=== PATIENT | female | born 1945 | race African-American/Black ===

== ENCOUNTER 2019-09-16 13:35 | Emergency (ER) | payer MEDICARE, MEDICAID ==
[2019-09-16 14:43] LABS: INTERNATIONAL RATION (INR) 1.01; PROTHROMBIN TIME 13.3 SEC (11.4-15.4)
[2019-09-16 14:44] LABS: ABSOLUTE LYMPHOCYTES (AUTO) 1.1 10^3/uL (0.5-4.7); ABSOLUTE MONOCYTES (AUTO) 0.4 10^3/uL (0.1-1.4); ABSOLUTE NEUT (AUTO) 7.7 10^3/uL (1.7-8.2); BASOPHILS % (AUTO) 0.4 % (0-2); EOSINOPHILS % (AUTO) 0.3 % (0-6); HEMATOCRIT 37.8 % (36.0-47.0); HEMOGLOBIN 12.2 g/dL (12.0-15.5); LYMPHOCYTES % (AUTO) 11.5 % (13-45); MEAN CORPUSCULAR HEMOGLOBIN 31.2 pg (27.0-33.4); MEAN CORPUSCULAR HGB CONC 32.4 g/dL (32.0-36.0); MEAN CORPUSCULAR VOLUME 96 fl (80-97); MONOCYTES % (AUTO) 4.5 % (3-13); PLATELET COUNT 239 10^3/uL (150-450); RED BLOOD COUNT 3.92 10^6/uL (3.72-5.28); RED CELL DISTRIBUTION WIDTH 19.6 % (11.5-14.0); SEGMENTED NEUTROPHILS % (AUTO) 83.3 % (42-78); TOTAL CELLS COUNTED % (AUTO) 100 %; WHITE BLOOD COUNT 9.2 10^3/uL (4.0-10.5)
[2019-09-16 14:51] LABS: VENOUS BLOOD BASE EXCESS -0.7 mmol/L; VENOUS BLOOD HCO3 25.2 mmol/L (20-32); VENOUS BLOOD PCO2 47.1 mmHg (35-63); VENOUS BLOOD PH 7.35 (7.30-7.42)
--- NOTE | 2019-09-16 14:55 | RADIOLOGY REPORT (SQ) ---
EXAM DESCRIPTION: CT HEAD WITHOUT COMPLETED DATE/TIME: 09/16/2019 2:42 pm REASON FOR STUDY: Altered mental status COMPARISON: None. TECHNIQUE: Axial images acquired through the brain without intravenous contrast. Images reviewed wi th bone, brain and subdural windows. Additional sagittal and coronal reconstructions were generated. Images stored on PACS. All CT scanners at this facility use dose modulation, iterative reconstruction, and/or weight based d osing when appropriate to reduce radiation dose to as low as reasonably achievable (ALARA). [facility]: Dose Right [facility]: CareDose [facility]: Dose Right [facility]: Teradose 4D [facility]: NCTech RADIATION DOSE: CT Rad equipment meets quality standard of care and radiation dose reduction techniq ues were employed. CTDIvol: 24.8 - 53.2 mGy. DLP: 1570 mGy-cm. mGy. LIMITATIONS: None. FINDINGS: VENTRICLES: Prominent. CEREBRUM: No masses. No hemorrhage. No midline shift. Areas of low density in the white matter mos t likely due to chronic micro-vascular ischemic change. No evidence for acute infarction. CEREBELLUM: No masses. No hemorrhage. No alteration of density. No evidence for acute infarction. EXTRAAXIAL SPACES: Mild age-related involutional change. No fluid collections. No masses. ORBITS AND GLOBE: No intra- or extraconal masses. Normal contour of globe without masses. CALVARIUM: No fracture. PARANASAL SINUSES: No fluid or mucosal thickening. SOFT TISSUES: No mass or hematoma. OTHER: There is expansion of the sella turcica with generally low-attenuation. IMPRESSION: 1. MILD CHRONIC CHANGES OF ATROPHY AND MICROVASCULAR ISCHEMIA. NO ACUTE PROCESS. 2. EXPANSION OF THE SELLA TURCICA WITH GENERALLY LOW-ATTENUATION. PROBABLY DUE TO AN INCIDENTAL EMPT Y SELLA. FOLLOW-UP OUTPATIENT MRI OF THE BRAIN WITH ATTENTION TO THE PITUITARY MAY BE CONSIDERED FOR MORE COMPLETE EVALUATION. EVIDENCE OF ACUTE STROKE: NO. TECHNICAL DOCUMENTATION: JOB ID: [id number] Quality ID # [id number]: Final reports with documentation of one or more dose reduction techniques (e.g., Au tomated exposure control, adjustment of the mA and/or kV according to patient size, use of iterative reconstruction technique) 2010 [employer]- All Rights Reserved Reading location - IP/workstation name: [email or web address]
--- NOTE | 2019-09-16 14:55 | RADIOLOGY REPORT (SQ) ---
EXAM DESCRIPTION: CHEST SINGLE VIEW COMPLETED DATE/TIME: 09/16/2019 2:43 pm REASON FOR STUDY: cough COMPARISON: None. EXAM PARAMETERS: NUMBER OF VIEWS: One view. TECHNIQUE: Single frontal radiographic view of the chest acquired. RADIATION DOSE: NA LIMITATIONS: None. FINDINGS: LUNGS AND PLEURA: No opacities, masses or pneumothorax. No pleural effusion. MEDIASTINUM AND HILAR STRUCTURES: No masses. Contour normal. HEART AND VASCULAR STRUCTURES: Heart normal in size. Normal vasculature. BONES: No acute findings. HARDWARE: Sternotomy wires and surgical clips. Defibrillator. OTHER: No other significant finding. IMPRESSION: NO ACUTE RADIOGRAPHIC FINDING IN THE CHEST. TECHNICAL DOCUMENTATION: JOB ID: [id number] [employer]- All Rights Reserved Reading location - IP/workstation name: [email or web address]
[2019-09-16 14:58] LABS: ALBUMIN 4.2 g/dL (3.5-5.0); ALKALINE PHOSPHATASE 135 U/L (38-126); ANION GAP 16 (5-19); ASPARTATE AMINO TRANSFERASE 50 U/L (14-36); BILIRUBIN,DIRECT 0.4 mg/dL (0.0-0.4); BILIRUBIN,TOTAL 0.7 mg/dL (0.2-1.3); BLOOD UREA NITROGEN 16 mg/dL (7-20); CALCIUM 9.9 mg/dL (8.4-10.2); CARBON DIOXIDE 24 mmol/L (22-30); CHLORIDE 102 mmol/L (98-107); GLUCOSE 122 mg/dL (75-110); POTASSIUM 4.2 mmol/L (3.6-5.0); TOTAL PROTEIN 9.5 g/dL (6.3-8.2)
[2019-09-16 15:17] LABS: APPEARANCE,URINE CLEAR; BILIRUBIN,URINE NEGATIVE (NEGATIVE); COLOR,URINE YELLOW; GLUCOSE, URINE NEGATIVE (NEGATIVE); KETONES,URINE NEGATIVE (NEGATIVE); LEUKOCYTE ESTERASE,URINE NEGATIVE (NEGATIVE); NITRITE,URINE NEGATIVE (NEGATIVE); PROTEIN,URINE NEGATIVE (NEGATIVE); URINE SPECIFIC GRAVITY 1.014; UROBILINOGEN,URINE NEGATIVE mg/dL (<2.0)
--- NOTE | 2019-09-16 15:20 | ER Document Report ---
ED Blood Sugar Problem - General Chief Complaint: Low Blood Sugar Stated Complaint: BLOOD SUGAR ISSUES Primary Care Provider: JACE CORONA DO [Primary Care Provider] - Follow up as needed TRAVEL OUTSIDE OF THE [place] IN LAST 30 DAYS: No - HPI Notes: 74 f who had been very functional and healthy really until she was hospitalized in [facility] for 5-1/2 weeks initially for gallbladder infection and obs truction she had a stent placed but hospitalization complicated by PNA, dvt in arm/lung, renal injury, inpatient rehab 3wks now has been living at her daughter's for about 2 weeks. Before hospitalization she was driving getting up doing all of her things on her own lives on her own and very functional. She has been she has 2 kids who are adults. Now in the house with her daughter is her daughter's partner and her daughter's daughter. Her son who is also here in the hospital today is also coming and helping a lot. Daughter says that she is just started a home 3 times a week physical therapy and they are needing to help her get up from sitting or from bed and then she very very s lowly walks with a walker. They have her in a room that has a little this where she can eat and toilet they says she wants up gets into the tub on her own and cleans her self and then they help her get up. But she is able to dress with assistance get up and then get to the toilet and do her her use the bathroom on her own. They said the last night she was eating some peanut butter crackers she seemed fine sitting watching TV. She had taken her p.m. meds and they made manage all her medications the daughter administered 14 units of Lantus that she gets every night. They do not think that she could possibly Geremias have had access to this since is in the fridge rater and she needs assistance to get up. They say that her daughter says that she feels her medications in a pillbox for the week and they have a bag here with a bunch of medications somewhere repeat and they seem unsure if there were more acute medications the patient's says that yes there is another bag she has 2 bags of medications usually and initially the daughter thought there were 2 bags but only 1 is here they said that she is on metformin that medication is not here in the bags I have the medications inside the bag are Remeron which was prescribed on the third Celexa lisinopril atorvastatin Lasix 40 once a day, 5 sublingual nitro as needed, baby aspirin, Protonix, carvedilol twice daily metoprolol 50 a day zolpidem 5 nightly, cyclobenzaprine 10, melatonin she has not yet started taking, Advair inhaler disc, no sliding scale Insulin. They said that there have not been other low blood sugars. Past Medical History - General Information source: Patient, Relative - Daughter and son which are her only children. - Social History Smoking Status: Unknown if Ever Smoked Family History: Reviewed & Not Pertinent Patient has suicidal ideation: No Patient has homicidal ideation: No Physical Exam - Vital signs Vitals: Resp 23 H 09/16/19 13:41 Course - Vital Signs Vital signs: Temp Pulse Resp BP Pulse Ox 97.7 F 80 31 H 107/65 96 09/16/19 13:47 09/16/19 13:47 09/16/19 17:01 09/16/19 17:01 09/16/19 13:47 - Laboratory Result Diagrams: 09/16/19 14:22 09/16/19 14:22 Laboratory results interpreted by me: 09/16/19 09/16/19 09/16/19 14:22 14:22 14:28 RDW 19.6 H Lymph % (Auto) 11.5 L Seg Neutrophils % 83.3 H Est GFR ( Amer) 58 L Est GFR (MDRD) Non-Af 48 L Glucose 122 H POC Glucose 124 H AST 50 H Alkaline Phosphatase 135 H Total Protein 9.5 H Urine Ascorbic Acid 09/16/19 09/16/19 14:53 18:37 RDW Lymph % (Auto) Seg Neutrophils % Est GFR ( Amer) Est GFR (MDRD) Non-Af Glucose POC Glucose 168 H AST Alkaline Phosphatase Total Protein Urine Ascorbic Acid 20 H Discharge - Discharge Clinical Impression: Hypoglycemia Condition: Fair Disposition: HOME, SELF-CARE Additional Instructions: Today in the emergency department after you it had a very low blood sugar, your blood sugars here remained within normal limits during a few hours of observation. Your lab work looks okay and is within normal limits. Your chest x-ray does not show any obvious pneumonias. I have printed out the reports for your labs and imaging. I think the main thing is that you should be following up with your primary care doctor tomorrow to discuss this episode of hypoglycemia or low sugar. I worry that if she is having changes in her activity and intake of food levels that her insulin needs may not be as high. Also she should be having her sugars checked at certain points within the day. You mention she is on metformin but do not have that medication here with the rest of her medications. I did receive a list from your primary care doctor's office which I have given you all a print out of. I would like you to talk to your primary care doctor about a way to manage her medications and ensure her sugars are being appropriately managed so she does not get low again. Also great to be getting her up out of bed and using the incentive spirometer to continue to get her lungs back where they were before hospitalization, as much as possible. I would like you also to talk to your doctor about stopping the Ambien, zolpidem, as it is a sometimes dangerous medication for older adults and there are other ways to regulate her sleep cycle and hygiene. Referrals: JACE CORONA, [Primary Care Provider] - Follow up tomorrow
--- NOTE | 2019-09-16 16:56 | EKG REPORT ---
SEVERITY:- ABNORMAL ECG - SINUS RHYTHM LVH WITH SECONDARY REPOLARIZATION ABNORMALITY BORDERLINE PROLONGED QT INTERVAL : Confirmed by: Chad Ramires MD 16-Sep-2019 16:55:28
[2019-09-16 19:44] VITALS: BP 151/69
== END 2019-09-16 19:53 | disposition home or self-care (01) ==
LOC: ER 13:35
DX: E16.2 Hypoglycemia, unspecified (principal); Z79.4 Long term (current) use of insulin; Z79.899 Other long term (current) drug therapy; Z79.82 Long term (current) use of aspirin; Z79.51 Long term (current) use of inhaled steroids
CPT/HCPCS: 36415; 70450; 71045; 80053; 81001; 82803; 82962; 83605; 85025; 85610; 93005; 93010; 99284

== ENCOUNTER 2019-09-18 08:25 | Observation (INO) | payer MEDICARE, MEDICAID ==
[2019-09-18] MEDS ORDERED: DEXTROSE 50%-WATER 25 GM/50 ML DISP.SYRIN IV ONE (08:39)
[2019-09-18] MEDS ORDERED: DEXTROSE 5%-NORMAL SALINE 1,000 ML IV PRN (10:23)
[2019-09-18 11:44] LABS: ABSOLUTE EOSINOPHILS # (AUTO) 0.2 10^3/uL (0.0-0.6); ABSOLUTE LYMPHOCYTES (AUTO) 1.1 10^3/uL (0.5-4.7); ABSOLUTE MONOCYTES (AUTO) 0.7 10^3/uL (0.1-1.4); ABSOLUTE NEUT (AUTO) 6.5 10^3/uL (1.7-8.2); BASOPHILS % (AUTO) 0.4 % (0-2); EOSINOPHILS % (AUTO) 2.8 % (0-6); HEMATOCRIT 31.8 % (36.0-47.0); HEMOGLOBIN 10.2 g/dL (12.0-15.5); LYMPHOCYTES % (AUTO) 12.4 % (13-45); MEAN CORPUSCULAR HEMOGLOBIN 31.5 pg (27.0-33.4); MEAN CORPUSCULAR VOLUME 99 fl (80-97); MONOCYTES % (AUTO) 8.3 % (3-13); PLATELET COUNT 218 10^3/uL (150-450); RED BLOOD COUNT 3.23 10^6/uL (3.72-5.28); RED CELL DISTRIBUTION WIDTH 19.3 % (11.5-14.0); SEGMENTED NEUTROPHILS % (AUTO) 76.1 % (42-78); TOTAL CELLS COUNTED % (AUTO) 100 %; WHITE BLOOD COUNT 8.5 10^3/uL (4.0-10.5)
--- NOTE | 2019-09-18 11:51 | ER Document Report ---
ED General - General Chief Complaint: Low Blood Sugar Stated Complaint: BLOOD SUGAR ISSUES Time Seen by Provider: 09/18/19 10:53 Notes: Ms. Medina is a 74 yo f w/ PMH diabetes on insulin, hypertension, hyperlipidemia, CHF and recent prolonged hospitalization at which point the patient had PE and pneumonia brought in by EMS for hypoglycemia. Per daughter, the patient was not responsive this morning so she assumed that her glucose was elevated and gave the patient 14 units of Levemir. Patient's daughter did not check her blood glucose prior to administering the Levemir. She then checked her glucose and it was 27. On EMS arrival, the patient's glucose had dropped down to 14. Patient was given 2 x 25 g of D10. Prior to arrival, the patient's blood glucose was greater than 100 however she was still decreased mentation. Patient denies any complaints at this point in time such as fever or chills, cough or chest pain. She does endorse some increased urinary frequency and some dysuria. TRAVEL OUTSIDE OF THE [place] IN LAST 30 DAYS: No - Related Data Allergies/Adverse Reactions: No Known Allergies Allergy (Unverified 09/16/19 19:53) Home Medications: Levamir Past Medical History - Social History Smoking Status: Smoker,Current Status Unk Chew tobacco use (# tins/day): No Frequency of alcohol use: None Drug Abuse: None Family History: Reviewed & Not Pertinent Patient has suicidal ideation: No Patient has homicidal ideation: No Review of Systems - Review of Systems Constitutional: See HPI EENT: No symptoms reported Cardiovascular: No symptoms reported Respiratory: No symptoms reported Gastrointestinal: No symptoms reported Genitourinary: See HPI Female Genitourinary: No symptoms reported Musculoskeletal: No symptoms reported Skin: No symptoms reported Hematologic/Lymphatic: No symptoms reported Neurological/Psychological: No symptoms reported Physical Exam - Vital signs Vitals: Temp 95.3 F L 09/18/19 08:26 Interpretation: Hypotensive - General General appearance: Alert, Lethargic - HEENT Head: Normocephalic, Atraumatic Eyes: Normal Pupils: PERRL Mucous membranes: Dry - Respiratory Respiratory status: No respiratory distress Chest status: Nontender Breath sounds: Normal Chest palpation: Normal - Cardiovascular Rhythm: Regular Heart sounds: Normal auscultation Murmur: No - Abdominal Inspection: Normal Distension: No distension Bowel sounds: Normal Tenderness: Nontender Organomegaly: No organomegaly - Back Back: Normal, Nontender - Extremities General upper extremity: Normal inspection, Nontender, Normal color, Normal ROM, Normal temperature General lower extremity: Normal inspection, Nontender, Normal color, Normal ROM, Normal temperature, Normal weight bearing. No: Meghna's sign - Neurological Neuro grossly intact: Yes Cognition: Normal Orientation: AAOx4 Adkins Coma Scale Eye Opening: Spontaneous Agnieszka Coma Scale Verbal: Oriented Agnieszka Coma Scale Motor: Obeys Commands Agnieszka Coma Scale Total: 15 Speech: Normal Motor strength normal: LUE, RUE, LLE, RLE Sensory: Normal - Psychological Associated symptoms: Normal affect, Normal mood - Skin Skin Temperature: Warm Skin Moisture: Dry Skin Color: Normal Course - Re-evaluation Re-evalutation: 09/18/19 11:01 Patient ordered for labs, portable chest x-ray and CT had Noncon. Likely altered mental status is related to patient's glycemia. Later, the patient's daughter was notified by her brother that the patient's Levemir was changed from 14 to 11. Patient usually receives Levemir only once a day. She did receive 14 units yesterday evening and then an additional 14's this a.m. when the daughter noted her to be unresponsive. 09/18/19 11:47 Notified by resident care technician that the patient had a CT Noncon for altered mental status 2 days ago which was unremarkable. Patient's daughter is adamant that she has not had any falls therefore will cancel CT head. CBC within normal limits, hemoglobin slightly decreased (12.2/37.8) now 10.2/31.8. BMP notable for BNP greater than 10,000. 09/18/19 12:15 Patient's repeat glucose was 191. Requested RN stop IVF D5NS. 09/18/19 12:42 Notified by nursing and respiratory therapy that they were unable to obtain ABG. Attempted to obtain, unable to obtain by me. Pt much more alert, sitting upright. Will be fed peanut butter and crackers. 09/18/19 13:34 Pt's repeat gluc was 137. Patient has been IV fluids containing D5 have been stopped earlier. They positive for UTI. Patient ordered ceftriaxone. Will reinitiate D5 NS at 100 ml/hr 09/18/19 15:19 Repeat gluc Spoke to admitting Abe. Admit to Angelika 09/18/19 15:25 Patient discussed and admitted to - Vital Signs Vital signs: Temp Pulse Resp BP Pulse Ox 98.5 F 12 145/69 H 99 09/18/19 15:36 09/18/19 15:31 09/18/19 15:31 09/18/19 15:31 - Laboratory Result Diagrams: 09/18/19 08:45 09/18/19 08:45 Laboratory results interpreted by me: 09/18/19 09/18/19 09/18/19 08:45 08:45 08:45 RBC 3.23 L Hgb 10.2 L Hct 31.8 L MCV 99 H RDW 19.3 H Lymph % (Auto) 12.4 L Est GFR (MDRD) Non-Af 54 L Glucose 250 H POC Glucose Creatine Kinase 23 L NT-Pro-B Natriuret Pep [id number] H Albumin 3.0 L Urine Protein Ur Leukocyte Esterase Urine Ascorbic Acid 09/18/19 09/18/19 09/18/19 11:08 12:07 12:14 RBC Hgb Hct MCV RDW Lymph % (Auto) Est GFR (MDRD) Non-Af Glucose POC Glucose 162 H 191 H Creatine Kinase NT-Pro-B Natriuret Pep Albumin Urine Protein 100 H Ur Leukocyte Esterase LARGE H Urine Ascorbic Acid 40 H 09/18/19 09/18/19 13:33 15:17 RBC Hgb Hct MCV RDW Lymph % (Auto) Est GFR (MDRD) Non-Af Glucose POC Glucose 137 H 123 H Creatine Kinase NT-Pro-B Natriuret Pep Albumin Urine Protein Ur Leukocyte Esterase Urine Ascorbic Acid Critical Care Note - Critical Care Note Total time excluding time spent on procedures (mins): 40 - Patient required multiple reassessments, multiple blood glucose checks and need for IV glucose in addition to feeding the patient. Patient also has UTI. Other etiologies considered, Devan electrolyte, dehydration, infectious Discharge - Discharge Clinical Impression: UTI (urinary tract infection), Insulin overdose, Hypoglycemia Condition: Fair Disposition: ADMITTED INPATIENT Admitting Provider: Roberto (Hospitalist) Unit Admitted: Medical Floor
[2019-09-18 11:56] LABS: ALKALINE PHOSPHATASE 90 U/L (38-126); ANION GAP 7 (5-19); ASPARTATE AMINO TRANSFERASE 33 U/L (14-36); BILIRUBIN,DIRECT 0.2 mg/dL (0.0-0.4); BILIRUBIN,TOTAL 0.4 mg/dL (0.2-1.3); BLOOD UREA NITROGEN 18 mg/dL (7-20); CALCIUM 8.8 mg/dL (8.4-10.2); CARBON DIOXIDE 27 mmol/L (22-30); CHLORIDE 103 mmol/L (98-107); CREATINE KINASE 23 U/L (30-135); GLUCOSE 250 mg/dL (75-110); POTASSIUM 4.2 mmol/L (3.6-5.0)
[2019-09-18 12:06] LABS: NT PRO BNP 10300 pg/mL (<450)
[2019-09-18 12:10] LABS: TROPONIN I < 0.012 ng/mL
[2019-09-18 12:33] LABS: APPEARANCE,URINE TURBID; BILIRUBIN,URINE NEGATIVE (NEGATIVE); COLOR,URINE YELLOW; GLUCOSE, URINE NEGATIVE (NEGATIVE); KETONES,URINE NEGATIVE (NEGATIVE); LEUKOCYTE ESTERASE,URINE LARGE (NEGATIVE); NITRITE,URINE NEGATIVE (NEGATIVE); PROTEIN,URINE 100 mg/dL (NEGATIVE); URINE SPECIFIC GRAVITY 1.016; UROBILINOGEN,URINE NEGATIVE mg/dL (<2.0)
--- NOTE | 2019-09-18 12:44 | RADIOLOGY REPORT (SQ) ---
EXAM DESCRIPTION: CHEST SINGLE VIEW COMPLETED DATE/TIME: 09/18/2019 12:34 pm REASON FOR STUDY: ams, hx chf COMPARISON: None. EXAM PARAMETERS: NUMBER OF VIEWS: One view. TECHNIQUE: Single frontal radiographic view of the chest acquired. RADIATION DOSE: NA LIMITATIONS: None. FINDINGS: LUNGS AND PLEURA: Mildly increased interstitial markings are seen, particularly at the william g bases. Left apical calcified granuloma. No pleural effusion. No pneumothorax. MEDIASTINUM AND HILAR STRUCTURES: No masses. Contour normal. HEART AND VASCULAR STRUCTURES: Mild cardiomegaly. Mild central vascular congestion. BONES: No acute findings. HARDWARE: AICD and midline surgical changes, grossly stable. OTHER: No other significant finding. IMPRESSION: Findings suggestive of early CHF exacerbation. TECHNICAL DOCUMENTATION: JOB ID: [id number] [employer]- All Rights Reserved Reading location - IP/workstation name: [email or web address]
[2019-09-18 13:57] LABS: VENOUS BLOOD HCO3 25.5 mmol/L (20-32); VENOUS BLOOD PCO2 44.7 mmHg (35-63); VENOUS BLOOD PH 7.37 (7.30-7.42)
--- NOTE | 2019-09-18 14:52 | EKG REPORT ---
SEVERITY:- ABNORMAL ECG - SINUS RHYTHM PROBABLE LVH WITH SECONDARY REPOL ABNRM : Confirmed by: Chad Ramires MD 18-Sep-2019 14:52:03
[2019-09-18] MEDS ORDERED: CEFTRIAXONE 1 GM/D5W RTU 1 GM/50 ML RTUPB IV ONE (15:19)
[2019-09-18] MEDS ORDERED: DEXTROSE 10%-WATER 1,000 ML IV PRN (16:00)
[2019-09-18] MEDS ORDERED: TEMAZEPAM 7.5 MG CAPSULE PO PRN (16:28)
[2019-09-18] MEDS ORDERED: ACETAMINOPHEN 325 MG TABLET PO PRN (16:28)
[2019-09-18] MEDS ORDERED: ONDANSETRON 4 MG TAB.RAPDIS PO PRN (16:28)
[2019-09-18] MEDS ORDERED: PROMETHAZINE HCL INJ 25 MG/1 ML VIAL IV PRN (16:28)
[2019-09-18] MEDS ORDERED: IPRATROPIUM/ALBUTEROL 0.5-2.5 MG/3 ML AMPUL NEB PRN (16:28)
[2019-09-18] MEDS ORDERED: OXYCODONE-ACETAMINOPHEN 5-325 MG TABLET PO PRN (16:28)
[2019-09-18] MEDS ORDERED: DEXTROSE 40% GEL 15 GM TUBE PO PRN ×2 (16:32)
[2019-09-18] MEDS ORDERED: DEXTROSE 50%-WATER 25 GM/50 ML DISP.SYRIN IV PRN ×2 (16:32)
[2019-09-18] MEDS ORDERED: GLUCAGON,HUMAN RECOMB 1 MG INJ IM PRN (16:32)
--- NOTE | 2019-09-18 17:03 | PDOC H&P ---
History of Present Illness Admission Date/PCP: 09/18/19 15:41 JACE CORONA DO History of Present Illness: STEVEN HOOD is a 74 year old female past medical history of COPD, CAD, CHF, who had a recent complicated hospitalization at [facility] where she stayed for 5 1/2 and half weeks. Patient was admitted for cholecystitis and choledocholithiasis she underwent cholecystectomy and stent placement but unfortunately her hospitalization was complicated by pneumonia, DVT and JARROD. Patient was discharged to rehab where he stayed there for 3 weeks and then was transitioned to home where she is living with her daughter and receiving home PT. Patient was brought to ED by EMS for altered mental status and hypoglycemia. On my encounter no family at bedside and patient is comfortably resting in bed in no apparent distress alert and oriented x2 stating that she does not remember anything that has happened for the last 24 hours. She is denying any headache, vision changes, numbness, tingling, shortness of breath, chest pain, nausea, vomiting, diarrhea, constipation. Endorses some dysuria. As per my conversation with primary nurse at the ED and ED physician and her note patient appeared to be altered at home and daughter thought she may be hypoglycemic and gave her 14 units of Levemir in addition to 14 units that she received the night before patient mental status did not improve and EMS was called. When EMS arrived patient was noted to have a blood glucose level of 14. Patient was given Narcan and started on hypoglycemia and brought to ED. Social History Smoking Status: Smoker,Current Status Unk Electronic Cigarette use?: No Family History Family History: Reviewed & Not Pertinent Parental Family History Reviewed: Yes Children Family History Reviewed: Yes Sibling(s) Family History Reviewed.: Yes Medication/Allergy Allergies/Adverse Reactions: No Known Allergies Allergy (Unverified 09/16/19 19:53) Review of Systems Review of Systems: as per hpi Physical Exam Vital Signs: Temp Pulse Resp BP Pulse Ox 98.5 F 12 145/69 H 99 09/18/19 15:36 09/18/19 15:31 09/18/19 15:31 09/18/19 15:31 Intake & Output 09/17/19 09/18/19 09/19/19 06:59 06:59 06:59 Intake Total 310 Balance 310 Weight 55 kg General appearance: PRESENT: no acute distress, well-developed, well-nourished Head exam: PRESENT: atraumatic, normocephalic Respiratory exam: PRESENT: clear to auscultation joan. ABSENT: rales, rhonchi, wheezes Cardiovascular exam: PRESENT: RRR. ABSENT: diastolic murmur, rubs, systolic murmur GI/Abdominal exam: PRESENT: normal bowel sounds, soft. ABSENT: distended, guarding, mass, organolmegaly, rebound, tenderness Neurological exam: PRESENT: alert, awake, oriented to person, CN II-XII grossly intact. ABSENT: motor sensory deficit Results Laboratory Results: 09/18/19 08:45 09/18/19 08:45 09/18/19 09/18/19 09/18/19 08:45 08:45 12:07 WBC 8.5 RBC 3.23 L Hgb 10.2 L Hct 31.8 L MCV 99 H MCH 31.5 MCHC 32.0 RDW 19.3 H Plt Count 218 Seg Neutrophils % 76.1 VBG pH VBG pCO2 VBG HCO3 VBG Base Excess Sodium 137.2 Potassium 4.2 Chloride 103 Carbon Dioxide 27 Anion Gap 7 BUN 18 Creatinine 1.00 Est GFR ( Amer) > 60 Glucose 250 H Calcium 8.8 Total Bilirubin 0.4 AST 33 Alkaline Phosphatase 90 Ammonia Total Protein 7.0 Albumin 3.0 L Urine Color YELLOW Urine Appearance TURBID Urine pH 8.0 Ur Specific Buckley 1.016 Urine Protein 100 H Urine Glucose (UA) NEGATIVE Urine Ketones NEGATIVE Urine Blood NEGATIVE Urine Nitrite NEGATIVE Ur Leukocyte Esterase LARGE H Urine WBC (Auto) >182 Urine RBC (Auto) 74 09/18/19 09/18/19 13:30 13:30 WBC RBC Hgb Hct MCV MCH MCHC RDW Plt Count Seg Neutrophils % VBG pH 7.37 VBG pCO2 44.7 VBG HCO3 25.5 VBG Base Excess 0 Sodium Potassium Chloride Carbon Dioxide Anion Gap BUN Creatinine Est GFR ( Amer) Glucose Calcium Total Bilirubin AST Alkaline Phosphatase Ammonia 30.3 Total Protein Albumin Urine Color Urine Appearance Urine pH Ur Specific Buckley Urine Protein Urine Glucose (UA) Urine Ketones Urine Blood Urine Nitrite Ur Leukocyte Esterase Urine WBC (Auto) Urine RBC (Auto) 09/18/19 09/18/19 08:45 08:45 Creatine Kinase 23 L Troponin I < 0.012 NT-Pro-B Natriuret Pep [id number] H Impressions: Chest X-Ray 09/18/19 11:31 IMPRESSION: Findings suggestive of early CHF exacerbation. Assessment and Plan - Diagnosis (1) Hypoglycemia Is this a current diagnosis for this admission?: Yes Plan: Due to excessive Levemir intake. Admit to telemetry, hypoglycemia protocol, D10W, seizure and fall precaution. Diabetic education to the patient and family. (2) Altered mental status Qualifiers: Altered mental status type: unspecified Qualified Code(s): R41.82 - Altered mental status, unspecified Is this a current diagnosis for this admission?: Yes Plan: Acute metabolic encephalopathy most likely due to hypoglycemia complicated by underlying UTI. At baseline patient is alert oriented x4. [facility] before recent complicated hospitalization at [facility]. Ammonia WNL. VBG WNL. CT head from 09/16/2019 neative for any acute abnormalities. As per family patient has not sustained any fall while being altered. Admit to telemetry, fall, seizure precautions, empiric IV antibiotics for underlying UTI and hypoglycemia protocol. (3) UTI (urinary tract infection) Qualifiers: Indwelling urinary catheter type: unspecified Is this a current diagnosis for this admission?: Yes Plan: Likely due to gram-negative's including E. coli. Empiric IV antibiotics. Urine culture.
[2019-09-18] MEDS ORDERED: METOPROLOL TARTRATE PF/INJ 5 MG/5 ML SDV IV PRN (17:23)
[2019-09-18] MEDS ORDERED: HYDRALAZINE HCL INJ/PF 20 MG/1 ML SDV IV PRN (17:23)
[2019-09-18] MEDS: DOCUSATE SODIUM 100 MG CAPSULE PO SCH (19:07)
[2019-09-18] MEDS: INSULIN LISPRO 100 UNIT/ML 3 ML VIAL SUBCUT SCH (22:29)
[2019-09-18] MEDS: FAMOTIDINE 20 MG TABLET PO SCH (22:32)
[2019-09-19 05:02] LABS: ABSOLUTE EOSINOPHILS # (AUTO) 0.7 10^3/uL (0.0-0.6); ABSOLUTE LYMPHOCYTES (AUTO) 1.4 10^3/uL (0.5-4.7); ABSOLUTE MONOCYTES (AUTO) 1.1 10^3/uL (0.1-1.4); ABSOLUTE NEUT (AUTO) 5.6 10^3/uL (1.7-8.2); BASOPHILS % (AUTO) 0.4 % (0-2); EOSINOPHILS % (AUTO) 8.3 % (0-6); HEMATOCRIT 29.7 % (36.0-47.0); HEMOGLOBIN 9.9 g/dL (12.0-15.5); LYMPHOCYTES % (AUTO) 16.1 % (13-45); MEAN CORPUSCULAR HEMOGLOBIN 32.1 pg (27.0-33.4); MEAN CORPUSCULAR HGB CONC 33.4 g/dL (32.0-36.0); MEAN CORPUSCULAR VOLUME 96 fl (80-97); PLATELET COUNT 214 10^3/uL (150-450); RED CELL DISTRIBUTION WIDTH 18.7 % (11.5-14.0); SEGMENTED NEUTROPHILS % (AUTO) 63.2 % (42-78); TOTAL CELLS COUNTED % (AUTO) 100 %; WHITE BLOOD COUNT 8.8 10^3/uL (4.0-10.5)
[2019-09-19 05:24] LABS: ALBUMIN 2.8 g/dL (3.5-5.0); ALKALINE PHOSPHATASE 82 U/L (38-126); ANION GAP 6 (5-19); ASPARTATE AMINO TRANSFERASE 30 U/L (14-36); BILIRUBIN,DIRECT 0.2 mg/dL (0.0-0.4); BILIRUBIN,TOTAL 0.4 mg/dL (0.2-1.3); BLOOD UREA NITROGEN 14 mg/dL (7-20); CALCIUM 8.7 mg/dL (8.4-10.2); CARBON DIOXIDE 26 mmol/L (22-30); CHLORIDE 105 mmol/L (98-107); GLUCOSE 77 mg/dL (75-110); POTASSIUM 4.1 mmol/L (3.6-5.0); TOTAL PROTEIN 6.7 g/dL (6.3-8.2)
[2019-09-19] MEDS: INSULIN LISPRO 100 UNIT/ML 3 ML VIAL SUBCUT SCH ×4 (08:00→21:46)
[2019-09-19] MEDS: DOCUSATE SODIUM 100 MG CAPSULE PO SCH ×2 (11:14→17:42)
[2019-09-19] MEDS: ENOXAPARIN SODIUM INJ 40 MG/0.4 ML DISP.SYRIN SUBCUT SCH (11:14)
[2019-09-19] MEDS: FAMOTIDINE 20 MG TABLET PO SCH ×2 (11:14→21:44)
[2019-09-19] MEDS: CEFTRIAXONE 1 GM/D5W RTU 1 GM/50 ML RTUPB IV SCH (11:15)
--- NOTE | 2019-09-19 13:24 | PDOC PROGRESS REPORT ---
Subjective Progress Note for:: 09/19/19 Subjective:: STEVEN HOOD is a 74 year old female past medical history of COPD, CAD, CHF, who had a recent complicated hospitalization at [facility] where she stayed for 5 1/2 and half weeks. Patient was admitted for cholecystitis and choledocholithiasis she underwent cholecystectomy and stent placement but unfortunately her hospitalization was complicated by pneumonia, DVT and JARRDO. Patient was discharged to rehab where he stayed there for 3 weeks and then was transitioned to home where she is living with her daughter and receiving home PT. Patient was brought to ED by EMS for altered mental status and hypoglycemia. On my encounter no family at bedside and patient is comfortably resting in bed in no apparent distress alert and oriented x2 stating that she does not remember anything that has happened for the last 24 hours. She is denying any headache, vision changes, numbness, tingling, shortness of breath, chest pain, nausea, vomiting, diarrhea, constipation. Endorses some dysuria. As per my conversation with primary nurse at the ED and ED physician and her note patient appeared to be altered at home and daughter thought she may be hypoglycemic and gave her 14 units of Levemir in addition to 14 units that she received the night before patient mental status did not improve and EMS was called. When EMS arrived patient was noted to have a blood glucose level of 18. Patient was given Narcan and started on hypoglycemia and brought to ED. 09/19/2019. No acute events overnight. Patient mental status improving however still oriented only x2. Denies any fever, chills, nausea, vomiting, diarrhea, constipation or any urinary symptoms. P.o. tolerant, having normal bowel and bladder movement. Reason For Visit: HYPOGLYCEMIA, AMS, UTI Physical Exam Vital Signs: Temp Pulse Resp BP Pulse Ox 98.7 F 94 16 154/67 H 98 09/19/19 11:18 09/19/19 11:18 09/19/19 11:18 09/19/19 11:18 09/19/19 11:18 Intake & Output 09/18/19 09/19/19 09/20/19 06:59 06:59 06:59 Intake Total 650 Output Total 200 Balance 450 Weight 61.1 kg Results Laboratory Results: 09/19/19 04:23 09/19/19 04:23 09/18/19 09/18/19 09/18/19 08:45 13:30 13:30 WBC RBC Hgb Hct MCV MCH MCHC RDW Plt Count Seg Neutrophils % VBG pH 7.37 VBG pCO2 44.7 VBG HCO3 25.5 VBG Base Excess 0 Sodium Potassium Chloride Carbon Dioxide Anion Gap BUN Creatinine Est GFR ( Amer) Glucose Calcium Total Bilirubin AST Alkaline Phosphatase Ammonia 30.3 Total Protein Albumin TSH 1.60 09/19/19 09/19/19 04:23 04:23 WBC 8.8 RBC 3.10 L Hgb 9.9 L Hct 29.7 L MCV 96 MCH 32.1 MCHC 33.4 RDW 18.7 H Plt Count 214 Seg Neutrophils % 63.2 VBG pH VBG pCO2 VBG HCO3 VBG Base Excess Sodium 137.2 Potassium 4.1 Chloride 105 Carbon Dioxide 26 Anion Gap 6 BUN 14 Creatinine 0.77 Est GFR ( Amer) > 60 Glucose 77 Calcium 8.7 Total Bilirubin 0.4 AST 30 Alkaline Phosphatase 82 Ammonia Total Protein 6.7 Albumin 2.8 L TSH 09/18/19 09/18/19 08:45 08:45 Creatine Kinase 23 L Troponin I < 0.012 NT-Pro-B Natriuret Pep 44933 H Impressions: Chest X-Ray 09/18/19 11:31 IMPRESSION: Findings suggestive of early CHF exacerbation. Assessment and Plan - Diagnosis (1) Hypoglycemia Is this a current diagnosis for this admission?: Yes Plan: Euglycemic at the moment. Due to excessive Levemir intake. Continue telemetry, hypoglycemic protocol, DC D10W, seizure and fall precaution. Diabetic education to the patient and family. Had a conversation with her son who was present in the room. He stating that he will be taking patient to [place] to live with him so he can take care of him. As per son patient has been using insulin for the last several days however she has never been compliant, used to take metformin but was DC'd for some reason. Given the fact that patient is not compliant with her insulin and A1c 6.6% seems like patient has been either overtreated for her diabetes or A1c is falsely low because of her underlying anemia. Given her comorbidities and age goal of hemoglobin A1c should be 7 to 8%. I have discussed this with patient and son and plan is to hold Levemir at this point discharge patient on low-dose metformin and sliding scale insulin to follow-up with PCP. As per son patient has a glucometer and diabetic supplies and he is stating that he will make sure to check her very frequently. Patient and son advised to make a log of patient's blood glucose at home and make a note of the amount of insulin usage, and follow p with PCP see if she would need to be restarted on Levemir. Patient and family voiced understanding. (2) Altered mental status Qualifiers: Altered mental status type: unspecified Qualified Code(s): R41.82 - Altered mental status, unspecified Is this a current diagnosis for this admission?: Yes Plan: Improving. Not back to baseline as per son. Alert and oriented x3. Acute metabolic encephalopathy most likely due to hypoglycemia complicated by underlying UTI. At baseline patient is alert oriented x4. She was apparently living at [facility] before recent complicated hospitalization at [facility]. Ammonia WNL. VBG WNL. CT head from 09/16/2019 neative for any acute abnormalities. As per family patient has not sustained any fall while being altered. Continue telemetry, fall, seizure precautions, empiric IV antibiotics for underlying UTI and hypoglycemia protocol. (3) UTI (urinary tract infection) Qualifiers: Indwelling urinary catheter type: unspecified Is this a current diagnosis for this admission?: Yes Plan: Chronic indwelling urinary catheter. Likely due to gram-negative's including E. coli (4) CAD (coronary artery disease) of bypass graft Qualifiers: [place] vs. transplanted heart: [place] heart Associated angina: without angina Qualified Code(s): I25.810 - Atherosclerosis of coronary artery bypass graft(s) without angina pectoris Is this a current diagnosis for this admission?: Yes Plan: Denies any anginal symptoms. Status post CABG. Home meds are lisinopril, aspirin and metoprolol. Restart home meds. Adjust meds as needed. seems like patient is not on statins based on home meds review. Will obtain a lipid panel. (5) Hypertension Qualifiers: Hypertension type: essential hypertension Qualified Code(s): I10 - Essential (primary) hypertension Is this a current diagnosis for this admission?: Yes Plan: Restart home meds. Adjust meds as needed. (6) Depression Is this a current diagnosis for this admission?: Yes Plan: Denies any suicidal or homicidal ideation. Restart home meds.
[2019-09-19] MEDS ORDERED: (PENDING PHARMACY ID) (Lisinopril [Lisinopril] 20 MG) PO SCH (13:30)
[2019-09-19 13:53] LABS: CHOLESTEROL 96.46 mg/dL (0-200); TRIGLYCERIDES 134 mg/dL (<150)
[2019-09-19 14:04] LABS: DIRECT LDL 49 mg/dL (<100)
[2019-09-19] MEDS: METOPROLOL SUCCINATE 50 MG TAB.SR.24H PO SCH (15:15)
[2019-09-19] MEDS: FUROSEMIDE 40 MG TABLET PO SCH (15:16)
[2019-09-19] MEDS: ESCITALOPRAM OXALATE 10 MG TABLET PO SCH (15:16)
[2019-09-19] MEDS: ASPIRIN 81 MG TABLET, ENT COATED PO SCH (15:16)
[2019-09-19] MEDS ORDERED: MIRTAZAPINE 15 MG TABLET PO ONE (17:30)
[2019-09-20] MEDS: INSULIN LISPRO 100 UNIT/ML 3 ML VIAL SUBCUT SCH ×2 (08:07→12:40)
[2019-09-20] MEDS: DOCUSATE SODIUM 100 MG CAPSULE PO SCH (09:07)
[2019-09-20] MEDS: FAMOTIDINE 20 MG TABLET PO SCH (09:07)
[2019-09-20] MEDS: METOPROLOL SUCCINATE 50 MG TAB.SR.24H PO SCH (09:07)
[2019-09-20] MEDS: ASPIRIN 81 MG TABLET, ENT COATED PO SCH (09:08)
[2019-09-20] MEDS: CEFTRIAXONE 1 GM/D5W RTU 1 GM/50 ML RTUPB IV SCH (09:08)
[2019-09-20] MEDS: ESCITALOPRAM OXALATE 10 MG TABLET PO SCH (09:08)
[2019-09-20] MEDS: FUROSEMIDE 40 MG TABLET PO SCH (09:08)
[2019-09-20] MEDS: ENOXAPARIN SODIUM INJ 40 MG/0.4 ML DISP.SYRIN SUBCUT SCH (09:09)
[2019-09-20] MEDS ORDERED: FUROSEMIDE 40 MG TABLET PO SCH (10:00)
[2019-09-20] MEDS ORDERED: LISINOPRIL 10 MG TABLET PO SCH (10:00)
[2019-09-20 12:35] VITALS: BP 153/73
--- NOTE | 2019-09-20 17:28 | PDOC DISCHARGE SUMMARY ---
Impression - Admit/DC Date/PCP Admission Date/Primary Care Provider: 09/18/19 15:41 JACE CORONA DO Discharge Date: 09/20/19 - Discharge Diagnosis (1) Hypoglycemia Is this a current diagnosis for this admission?: Yes (2) Altered mental status Is this a current diagnosis for this admission?: Yes (3) UTI (urinary tract infection) Is this a current diagnosis for this admission?: Yes (4) CAD (coronary artery disease) of bypass graft Is this a current diagnosis for this admission?: Yes (5) Hypertension Is this a current diagnosis for this admission?: Yes (6) Depression Is this a current diagnosis for this admission?: Yes - Additional Information Discharge Diet: As Tolerated, Diabetic Discharge Activity: Activity As Tolerated, Balance Activity w/Rest Referrals: JACE CORONA DO [Primary Care Provider] - Follow up as needed (09/20 @ 1141 NO ANSWER AT PROVIDER'S OFFICE. A MESSAGE WAS LEFT FOR OFFICE TO CALL PATIENT WITH A FOLLOW UP DATE AND TIME.) Prescriptions: Insulin Lispro [Humalog Insulin 100 Unit/1 ml 3 ml Vial] 0 - 12 unit SUBCUT .SLD SCALE 30 Days #10 ml Cephalexin Monohydrate [Keflex 500 mg Capsule] 500 mg PO TID 4 Days #12 capsule Home Medications: Albuterol Sulfate [Proair HFA Inhalation Aerosol 8.5 gm MDI] 2 puff IH Q4HP PRN 09/19/19 Aspirin [Adult Low Dose Aspirin EC] 81 mg PO DAILY 09/19/19 Calcium Carbonate/Vitamin D3 [Calcium 500 + Vit D Caplet] 1 each PO DAILY 09/19/19 Escitalopram Oxalate [Lexapro 10 mg Tablet] 10 mg PO DAILY 09/19/19 Furosemide [Lasix 40 mg Tablet] 40 mg PO DAILY 09/19/19 Lisinopril 20 mg PO DAILY 09/19/19 Metoprolol Succinate [Toprol Xl 50 mg Tab.sr] 50 mg PO DAILY 09/19/19 Mirtazapine [Remeron 15 mg Tablet] 7.5 mg PO QHS 09/19/19 Multivit-Min/Iron/Folic/Lutein [Centrum Silver Women Tablet] 1 each PO DAILY 09/19/19 Pantoprazole Sodium [Protonix [address] Tablet] 40 mg PO DAILY 09/19/19 Cephalexin Monohydrate [Keflex 500 mg Capsule] 500 mg PO TID 4 Days #12 capsule 09/20/19 Insulin Lispro [Humalog Insulin 100 Unit/1 ml 3 ml Vial] 0 - 12 unit SUBCUT .SLD SCALE 30 Days #10 ml 09/20/19 History of Present Illiness History of Present Illness: STEVEN HOOD is a 74 year old female past medical history of COPD, CAD, CHF, who had a recent complicated hospitalization at [facility] where she stayed for 5 1/2 and half weeks. Patient was admitted for cholecystitis and choledocholithiasis she underwent cholecystectomy and stent placement but unfortunately her hospitalization was complicated by pneumonia, DVT and JARROD. Patient was discharged to rehab where he stayed there for 3 weeks and then was transitioned to home where she is living with her daughter and receiving home PT. Patient was brought to ED by EMS for altered mental status and hypoglycemia. On my encounter no family at bedside and patient is comfortably resting in bed in no apparent distress alert and oriented x2 stating that she does not remember anything that has happened for the last 24 hours. She is denying any headache, vision changes, numbness, tingling, shortness of breath, chest pain, nausea, vomiting, diarrhea, constipation. Endorses some dysuria. As per my conversation with primary nurse at the ED and ED physician and her note patient appeared to be altered at home and daughter thought she may be hypoglycemic and gave her 14 units of Levemir in addition to 14 units that she received the night before patient mental status did not improve and EMS was called. When EMS arrived patient was noted to have a blood glucose level of 14. Patient was given Narcan and started on hypoglycemia and brought to ED. Hospital Course Hospital Course: (1) Hypoglycemia Euglycemic at the moment. Due to excessive Levemir intake. Continue telemetry, hypoglycemic protocol, DC D10W, seizure and fall precaution. Diabetic education to the patient and family. Had a conversation with her son. He stating that he will be taking patient to [place] to live with him so he can take care of him. As per son patient has been using insulin for the last several days however she has never been compliant, used to take metformin but was DC'd for some reason. Given the fact that patient is not compliant with her insulin and A1c 6.6% seems like patient has been either overtreated for her diabetes or A1c is falsely low because of her underlying anemia. Given her comorbidities and age goal of hemoglobin A1c should be 7 to 8%. I have discussed this with patient and son and plan is to hold Levemir at this point discharge patient on low-dose metformin and sliding scale insulin to follow-up with PCP. As per son patient has a glucometer and diabetic supplies and he is stating that he will make sure to check her very frequently. Patient and son advised to make a log of patient's blood glucose at home and make a note of the amount of insulin usage, and follow p with PCP see if she would need to be restarted on Levemir. Patient and family voiced understanding. (2) Altered mental status Improving. Not back to baseline as per son. Alert and oriented x3. Acute metabolic encephalopathy most likely due to hypoglycemia complicated by underlying UTI. At baseline patient is alert oriented x4. She was apparently living at [facility] life before recent complicated hospitalization at [facility]. Ammonia WNL. VBG WNL. CT head from 09/16/2019 neative for any acute abnormalities. As per family patient has not sustained any fall while being altered. Admitted to telemetry, fall, seizure precautions, empiric IV antibiotics for underlying UTI and hypoglycemia protocol. (3) UTI (urinary tract infection) Chronic indwelling urinary catheter. Likely due to gram-negative's including E. coli Cultures remain negative. Was started on Keflex. Discharged on Keflex. (4) CAD (coronary artery disease) of bypass graft Denied any anginal symptoms. Status post CABG. Home meds are lisinopril, aspirin and metoprolol. Restarted home meds. (5) Hypertension Restarted on home meds. Adjust meds as needed. (6) Depression Denied any suicidal or homicidal ideation. Restarted home meds. Physical Exam Vital Signs: Temp Pulse Resp BP Pulse Ox 98.6 F 114 H 19 153/73 H 100 09/20/19 15:30 09/20/19 15:30 09/20/19 15:30 09/20/19 15:30 09/20/19 15:30 Intake & Output 09/19/19 09/20/19 09/21/19 06:59 06:59 06:59 Intake Total 650 770 168 Output Total 200 Balance 450 770 168 Weight 61.1 kg 63.1 kg General appearance: PRESENT: no acute distress, well-developed, well-nourished Head exam: PRESENT: atraumatic, normocephalic Respiratory exam: PRESENT: clear to auscultation joan. ABSENT: rales, rhonchi, wheezes Cardiovascular exam: PRESENT: RRR. ABSENT: diastolic murmur, rubs, systolic murmur GI/Abdominal exam: PRESENT: normal bowel sounds, soft. ABSENT: distended, guarding, mass, organolmegaly, rebound, tenderness Extremities exam: PRESENT: full ROM. ABSENT: calf tenderness, clubbing, pedal edema Neurological exam: PRESENT: alert, awake, oriented to person, oriented to place, CN II-XII grossly intact. ABSENT: motor sensory deficit Skin exam: PRESENT: dry, intact, warm. ABSENT: cyanosis, rash Results Laboratory Results: WBC 8.8 10^3/uL (4.0-10.5) 09/19/19 04:23 RBC 3.10 10^6/uL (3.72-5.28) L 09/19/19 04:23 Hgb 9.9 g/dL (12.0-15.5) L 09/19/19 04:23 Hct 29.7 % (36.0-47.0) L 09/19/19 04:23 MCV 96 fl (80-97) 09/19/19 04:23 MCH 32.1 pg (27.0-33.4) 09/19/19 04:23 MCHC 33.4 g/dL (32.0-36.0) 09/19/19 04:23 RDW 18.7 % (11.5-14.0) H 09/19/19 04:23 Plt Count 214 10^3/uL (150-450) 09/19/19 04:23 Lymph % (Auto) 16.1 % (13-45) 09/19/19 04:23 [place] % (Auto) 12.0 % (3-13) 09/19/19 04:23 Eos % (Auto) 8.3 % (0-6) H 09/19/19 04:23 Baso % (Auto) 0.4 % (0-2) 09/19/19 04:23 Absolute Neuts (auto) 5.6 10^3/uL (1.7-8.2) 09/19/19 04:23 Absolute Lymphs (auto) 1.4 10^3/uL (0.5-4.7) 09/19/19 04:23 Absolute Monos (auto) 1.1 10^3/uL (0.1-1.4) 09/19/19 04:23 Absolute Eos (auto) 0.7 10^3/uL (0.0-0.6) H 09/19/19 04:23 Absolute Basos (auto) 0.0 10^3/uL (0.0-0.2) 09/19/19 04:23 Seg Neutrophils % 63.2 % (42-78) 09/19/19 04:23 VBG pH 7.37 (7.30-7.42) 09/18/19 13:30 VBG pCO2 44.7 mmHg (35-63) 09/18/19 13:30 VBG HCO3 25.5 mmol/L (20-32) 09/18/19 13:30 VBG Base Excess 0 mmol/L 09/18/19 13:30 Sodium 137.2 mmol/L (137-145) 09/19/19 04:23 Potassium 4.1 mmol/L (3.6-5.0) 09/19/19 04:23 Chloride 105 mmol/L (98-107) 09/19/19 04:23 Carbon Dioxide 26 mmol/L (22-30) 09/19/19 04:23 Anion Gap 6 (5-19) 09/19/19 04:23 BUN 14 mg/dL (7-20) 09/19/19 04:23 Creatinine 0.77 mg/dL (0.52-1.25) 09/19/19 04:23 Est GFR ( Amer) > 60 (>60) 09/19/19 04:23 Est GFR (MDRD) Non-Af > 60 (>60) 09/19/19 04:23 Glucose 77 mg/dL (75-110) 09/19/19 04:23 POC Glucose 172 mg/dL (70-110) H 09/20/19 11:20 Hemoglobin A1c % 6.6 % (4.7-6.0) H 09/19/19 04:23 Calcium 8.7 mg/dL (8.4-10.2) 09/19/19 04:23 Total Bilirubin 0.4 mg/dL (0.2-1.3) 09/19/19 04:23 Direct Bilirubin 0.2 mg/dL (0.0-0.4) 09/19/19 04:23 Neonat Total Bilirubin Not Reportable 09/19/19 04:23 Neonat Direct Bilirubin Not Reportable 09/19/19 04:23 Neonat Indirect Bili Not Reportable 09/19/19 04:23 AST 30 U/L (14-36) 09/19/19 04:23 ALT 11 U/L (<35) 09/19/19 04:23 Alkaline Phosphatase 82 U/L (38-126) 09/19/19 04:23 Ammonia 30.3 umol/L (9-33) 09/18/19 13:30 Creatine Kinase 23 U/L (30-135) L 09/18/19 08:45 Troponin I < 0.012 ng/mL 09/18/19 08:45 NT-Pro-B Natriuret Pep 38364 pg/mL (<450) H 09/18/19 08:45 Total Protein 6.7 g/dL (6.3-8.2) 09/19/19 04:23 Albumin 2.8 g/dL (3.5-5.0) L 09/19/19 04:23 Triglycerides 134 mg/dL (<150) 09/19/19 04:23 Cholesterol 96.46 mg/dL (0-200) 09/19/19 04:23 LDL Cholesterol Direct 49 mg/dL (<100) 09/19/19 04:23 VLDL Cholesterol 27.0 mg/dL (10-31) 09/19/19 04:23 HDL Cholesterol 20 mg/dL (>40) L 09/19/19 04:23 TSH 1.60 uIU/mL (0.47-4.68) 09/18/19 08:45 Urine Color YELLOW 09/18/19 12:07 Urine Appearance TURBID 09/18/19 12:07 Urine pH 8.0 (5.0-9.0) 09/18/19 12:07 Ur Specific [place] 1.016 09/18/19 12:07 Urine Protein 100 mg/dL (NEGATIVE) H 09/18/19 12:07 Urine Glucose (UA) NEGATIVE mg/dL (NEGATIVE) 09/18/19 12:07 Urine Ketones NEGATIVE mg/dL (NEGATIVE) 09/18/19 12:07 Urine Blood NEGATIVE (NEGATIVE) 09/18/19 12:07 Urine Nitrite NEGATIVE (NEGATIVE) 09/18/19 12:07 Urine Bilirubin NEGATIVE (NEGATIVE) 09/18/19 12:07 Urine Urobilinogen NEGATIVE mg/dL (<2.0) 09/18/19 12:07 Ur Leukocyte Esterase LARGE (NEGATIVE) H 09/18/19 12:07 Urine WBC (Auto) >182 /HPF 09/18/19 12:07 Urine RBC (Auto) 74 /HPF 09/18/19 12:07 Urine Bacteria (Auto) 3+ /HPF 09/18/19 12:07 Urine WBC Clumps MANY /HPF 09/18/19 12:07 Squamous Epi Cells Auto 14 /HPF 09/18/19 12:07 U Non-Squamous Epis Auto 7 /HPF 09/18/19 12:07 Urine Mucus (Auto) MANY /LPF 09/18/19 12:07 Urine Ascorbic Acid 40 (NEGATIVE) H 09/18/19 12:07 09/18/19 08:45 Troponin I < 0.012 NT-Pro-B Natriuret Pep [id number] H Impressions: Chest X-Ray 09/18/19 11:31 IMPRESSION: Findings suggestive of early CHF exacerbation. Stroke Is this a Stroke Patient?: No Acute Heart Failure - Is this a Heart Failure Patient?: No
[2019-09-20] MEDS ORDERED: MIRTAZAPINE 15 MG TABLET PO SCH (22:00)
== END 2019-09-20 15:50 | disposition home health service (06) ==
LOC: ER 08:25 → INTOOBSV 15:41 → EH 15:41 → 5 20:45
PROVIDERS: ADMIT Internal Medicine; ATTEND Internal Medicine
DX: T38.3X1A Poisoning by insulin and oral hypoglycemic [antidiabetic] drugs, accidental (unintentional), initial encounter (principal); E11.649 Type 2 diabetes mellitus with hypoglycemia without coma; G93.41 Metabolic encephalopathy; T38.3X5A Adverse effect of insulin and oral hypoglycemic [antidiabetic] drugs, initial encounter; T83.511A Infection and inflammatory reaction due to indwelling urethral catheter, initial encounter; N39.0 Urinary tract infection, site not specified; Y84.6 Urinary catheterization as the cause of abnormal reaction of the patient, or of later complication, without mention of misadventure at the time of the procedure; I25.810 Atherosclerosis of coronary artery bypass graft(s) without angina pectoris; F32.9 Major depressive disorder, single episode, unspecified; J44.9 Chronic obstructive pulmonary disease, unspecified; D64.9 Anemia, unspecified; I95.9 Hypotension, unspecified; I11.0 Hypertensive heart disease with heart failure; I50.9 Heart failure, unspecified; Z79.4 Long term (current) use of insulin; Z95.1 Presence of aortocoronary bypass graft; Z79.899 Other long term (current) drug therapy; Z79.82 Long term (current) use of aspirin; Z90.49 Acquired absence of other specified parts of digestive tract; Z86.718 Personal history of other venous thrombosis and embolism; Z87.01 Personal history of pneumonia (recurrent)
CPT/HCPCS: 93005; 99291; 96360; 96361; 51701; 36415 ×2; 87040; 82962 ×3; 82140; 82550; 84443; 85025 ×2; 80053 ×2; 81001; 84484; 83036; 82803; 80061; 83880; 71045; 93010; 97163; 97535; 97167; G0378 ×4; A9270 ×16; J1650 ×2; J7042; J0696 ×3

== ENCOUNTER 2020-08-16 11:16 | Day surgery (SDC) | payer MEDICARE, MEDICAID ==
[~2020-08-16 11:16] MED LIST: CHONDR SU A NA/HYALUR INTRAOC KIT (SURGICARE) ONE; EPINEPHRINE INJ/PF 1 MG/1 ML AMPULE ONE; KETOROLAC TROMETHAMINE 0.45% 4 DROP/0.4 ML DROPERETTE OD PRN; LIDOCAINE 1%/PHENYLEPHRINE 1.5% 1 ML VIAL ONE
[2020-08-16] MEDS ORDERED: MIDAZOLAM 2 MG/2 ML INJ ONE (11:28)
[2020-08-16] MEDS: CYCLOPENTOLATE 0.2%/PHENYLEPHRINE 1% OPH SOLN 2 ML OD PRN ×3 (11:41→12:01)
[2020-08-16] MEDS: TROPICAMIDE 1% OPH SOLN 15 ML OD PRN ×3 (11:41→12:01)
[2020-08-16] MEDS: TETRACAINE HCL 0.5% OPH SOLN 4 ML OD PRN ×3 (11:41→12:09)
[2020-08-16] MEDS: BESIFLOXACIN HCL 0.6% OPH SUSP 5 ML BOTTLE OD PRN ×4 (11:41→12:23)
[2020-08-16] MEDS: PREDNISOLONE ACETATE 1% OPH SUSP 5 ML OD PRN ×2 (12:18→12:23)
[2020-08-16] MEDS: DORZOLAMIDE HCL 2%/TIMOLOL MALEAT 0.5% OPH SOLN 10 ML OD PRN ×2 (12:18→12:23)
--- NOTE | 2020-08-16 13:22 | Operative Report ---
Operative Report-[facility] Operative Report: DATE OF SURGERY: August 16, 2020 PREOPERATIVE DIAGNOSIS: NUCLEAR CATARACT, RIGHT EYE. POSTOPERATIVE DIAGNOSIS: NUCLEAR CATARACT, RIGHT EYE. PROCEDURE PERFORMED: PHACOEMULSIFICATION WITH POSTERIOR CHAMBER INTRAOCULAR LENS IMPLANT, RIGHT EYE. SURGEON: Yaya Bill DO MEDICATIONS AND ANESTHESIA: Versed: IV Versed Tetracaine drops: 1 to 2 drops given as needed COMPLICATION: None INDICATIONS FOR SURGERY: Medical necessity: Best corrected visual acuity worse than 20/40 secondary to cataracts with impairment of ability to carry out needs or desired activities, blurred vision, visual distortion, reduced contrast sensitivity and/or glare with association functional impairment and supporting documentation/testing, and cataracts causing symptomatic impairment of visual functions not corrected with tolerable changes in glasses or contact lenses interfering with activities of daily life. PROCEDURE: Consent: The risks, benefits and alternatives of this procedures was discussed with the patient. The patient read and signed the consent forms, was identified and was seated in the exam chair. IOL: MX 60 E 24.0 IOL Diopters: Phacoemulsification with posterior chamber intraocular lens implant: The face was prepped with 5% povidone iodine solution, and a few drops of 5% povidone iodine solution was instilled into the inferior fornix. A non-fenestrated drape was placed over the eye and the lids were parted with the speculum. A paracentesis was made with a 15 degree blade, and 1% lidocaine MPF followed by viscoelastic was injected into the anterior chamber. A 2.4 mm metal micro- keratome was used to create a temporal clear corneal incision. A circular anterior capsulorrhexis was created, followed by hydro-dissection and hydro- delineation. The phacoemulsification hand piece was inserted and the nucleus was removed with the Phaco chop technique. The irrigation-aspiration hand piece was used to remove the residual cortex, and vacuum the posterior capsule. The capsular bag was inflated and viscoelastic and the above-mentioned IOL was injected into the eye with care to insert both leaning and trailing haptics in the capsular bag. The irrigation/aspiration hand piece was reinserted to remove residual viscoelastic from the capsular bag and anterior chamber. The corneal incision was hydrated, and anterior chamber was inflated with sterile BSS via the paracentesis site, and found to be watertight. Postop medication: 1 drop of prednisolone into operative by followed by 1 drop of Cosopt into operative eye followed by 1 drop of Besivance intraoperative by other:
== END 2020-08-16 13:15 ==
LOC: SC 11:16
PROVIDERS: ATTEND Ophthalmology
DX: H25.11 Age-related nuclear cataract, right eye (principal); Z79.82 Long term (current) use of aspirin; F17.210 Nicotine dependence, cigarettes, uncomplicated; E11.36 Type 2 diabetes mellitus with diabetic cataract; E78.00 Pure hypercholesterolemia, unspecified; Z95.0 Presence of cardiac pacemaker; I11.0 Hypertensive heart disease with heart failure; I50.9 Heart failure, unspecified; I25.2 Old myocardial infarction; K21.9 Gastro-esophageal reflux disease without esophagitis
CPT/HCPCS: 66984; 82962; V2632; J2250; J3490 ×2; A9270; J0171

== ENCOUNTER 2020-09-06 08:45 | Day surgery (SDC) | payer MEDICARE, MEDICAID ==
[~2020-09-06 08:45] MED LIST changes: +CYCLOPENTOLATE 0.2%/PHENYLEPHRINE 1% OPH SOLN 2 ML OS PRN; -KETOROLAC TROMETHAMINE 0.45% 4 DROP/0.4 ML DROPERETTE OD PRN; +KETOROLAC TROMETHAMINE 0.45% 4 DROP/0.4 ML DROPERETTE OS PRN; +MIDAZOLAM 2 MG/2 ML INJ ONE; +TETRACAINE HCL 0.5% OPH SOLN 4 ML OS PRN; +TROPICAMIDE 1% OPH SOLN 15 ML OS PRN
[2020-09-06] MEDS ORDERED: ONDANSETRON HCL INJ/PF 4 MG/2 ML SDV ONE (08:49)
[2020-09-06] MEDS ORDERED: MIDAZOLAM 2 MG/2 ML INJ ONE (08:49)
[2020-09-06] MEDS ORDERED: FENTANYL CITRATE INJ/PF 100 MCG/2 ML AMPUL ONE (08:50)
[2020-09-06] MEDS: PREDNISOLONE ACETATE 1% OPH SUSP 5 ML OS PRN ×2 (10:08)
[2020-09-06] MEDS: BESIFLOXACIN HCL 0.6% OPH SUSP 5 ML BOTTLE OS PRN ×2 (10:08)
[2020-09-06] MEDS: DORZOLAMIDE HCL 2%/TIMOLOL MALEAT 0.5% OPH SOLN 10 ML OS PRN ×2 (10:08)
--- NOTE | 2020-09-06 16:20 | Operative Report ---
Operative Report-[facility] Operative Report: DATE OF SURGERY: September 06, 2020 PREOPERATIVE DIAGNOSIS: NUCLEAR CATARACT, LEFT EYE. POSTOPERATIVE DIAGNOSIS: NUCLEAR CATARACT, LEFT EYE. PROCEDURE PERFORMED: PHACOEMULSIFICATION WITH POSTERIOR CHAMBER INTRAOCULAR LENS IMPLANT, LEFT EYE. SURGEON: Yaya Bill DO MEDICATIONS AND ANESTHESIA: Versed: IV Versed Tetracaine drops: 1 to 2 drops given as needed COMPLICATION: None INDICATIONS FOR SURGERY: Medical necessity: Best corrected visual acuity worse than 20/40 secondary to cataracts with impairment of ability to carry out needs or desired activities, blurred vision, visual distortion, reduced contrast sensitivity and/or glare with association functional impairment and supporting documentation/testing, and cataracts causing symptomatic impairment of visual functions not corrected with tolerable changes in glasses or contact lenses interfering with activities of daily life. PROCEDURE: Consent: The risks, benefits and alternatives of this procedures was discussed with the patient. The patient read and signed the consent forms, was identified and was seated in the exam chair. IOL: MX 60 E 24.0 IOL Diopters: Phacoemulsification with posterior chamber intraocular lens implant: The face was prepped with 5% povidone iodine solution, and a few drops of 5% povidone iodine solution was instilled into the inferior fornix. A non-fenestrated drape was placed over the eye and the lids were parted with the speculum. A paracentesis was made with a 15 degree blade, and 1% lidocaine MPF followed by viscoelastic was injected into the anterior chamber. A 2.4 mm metal micro- keratome was used to create a temporal clear corneal incision. A circular anterior capsulorrhexis was created, followed by hydro-dissection and hydro- delineation. The phacoemulsification hand piece was inserted and the nucleus was removed with the Phaco chop technique. The irrigation-aspiration hand piece was used to remove the residual cortex, and vacuum the posterior capsule. The capsular bag was inflated and viscoelastic and the above-mentioned IOL was injected into the eye with care to insert both leaning and trailing haptics in the capsular bag. The irrigation/aspiration hand piece was reinserted to remove residual viscoelastic from the capsular bag and anterior chamber. The corneal incision was hydrated, and anterior chamber was inflated with sterile BSS via the paracentesis site, and found to be watertight. Postop medication:1 drop of prednisolone into operative by followed by 1 drop of Cosopt into operative eye followed by 1 drop of Besivance intraoperative by Other:
== END 2020-09-06 10:45 | disposition home or self-care (01) ==
LOC: SC 08:45
PROVIDERS: ATTEND Ophthalmology
DX: H25.12 Age-related nuclear cataract, left eye (principal); Z98.41 Cataract extraction status, right eye; F17.210 Nicotine dependence, cigarettes, uncomplicated; E11.36 Type 2 diabetes mellitus with diabetic cataract; Z79.4 Long term (current) use of insulin; E78.00 Pure hypercholesterolemia, unspecified; Z95.0 Presence of cardiac pacemaker; I11.0 Hypertensive heart disease with heart failure; I50.9 Heart failure, unspecified; Z95.1 Presence of aortocoronary bypass graft
CPT/HCPCS: 66984; 82962; V2632; J2250; J3490 ×2; A9270; J0171; J2405; 142; J3010